=== PATIENT | male | born 1965 | race Caucasian/White ===

== ENCOUNTER 2018-08-31 06:07 | Inpatient (IN) | payer MEDICARE, OTHER | END 2018-09-04 15:35 | LOC: PAS IN 06:07 → ORTHO 4S 12:55 | PROC: 0SRD0J9 Replacement of Left Knee Joint with Synthetic Substitute, Cemented, Open Approach (ICD-10-PCS; principal; 2018-08-31 08:55) | DX: M12.562 Traumatic arthropathy, left knee (principal); M17.12 Unilateral primary osteoarthritis, left knee; M21.162 Varus deformity, not elsewhere classified, left knee ==

== ENCOUNTER 2025-07-12 10:08 | Outpatient (CLI) | payer MEDICARE, OTHER ==
[~2025-07-12 10:08] MED LIST: HYDR-4353 PO; TIZA4TAB11 PO
--- NOTE | 2025-07-12 12:00 | RADIOLOGY REPORT ---
EXAM: MR MRI LUMBAR SPINE CLINICAL HISTORY: RADICULOPATHY, LUMBAR REGION COMPARISON: None TECHNIQUE: MRI imaging of the lumbar was performed on a MRI imaging system without intravenous contrast. FINDINGS GENERAL Multilevel disc degeneration. Alignment: No spondylolisthesis identified. Vertebrae: Vertebral body height is well maintained without evidence of a recent compression fracture. Conus: Conus medullaris terminates at the L1 level. T12-L1: The disc configuration is normal. No spinal canal or neural foraminal stenosis. Facet arthrosis. L1-2: Disc desiccation. No spinal canal or neural foraminal stenosis. Facet arthrosis. L2-3: Disc desiccation and 2.8 mm disc bulge. No spinal canal stenosis. Mild left foraminal stenosis. Facet arthrosis. L3-4: Disc desiccation. No spinal canal or neural foraminal stenosis. Facet arthrosis. L4-5: Disc desiccation and 2.85 mm disc bulge. No spinal canal stenosis. Mild right foraminal stenosis. Facet arthrosis. L5-S1: Disc desiccation and disc bulge. Moderate disc height loss. No spinal canal stenosis. Mild right foraminal stenosis. Facet arthrosis. IMPRESSION: 1. Multilevel disc degeneration. Multilevel foraminal stenosis, most pronounced and mild at L4-L5.
== END 2025-07-12 23:59 | disposition home or self-care (01) ==
LOC: MRI02 10:08
PROVIDERS: ATTEND Physician Assistant
DX: M51.17 Intervertebral disc disorders with radiculopathy, lumbosacral region (principal); M48.07 Spinal stenosis, lumbosacral region; M47.27 Other spondylosis with radiculopathy, lumbosacral region
CPT/HCPCS: 72148